=== PATIENT | female | born 1955 | race Caucasian/White ===

== ENCOUNTER 2021-07-30 11:34 | Outpatient (REF) | payer MEDICARE, SELFPAY ==
--- NOTE | ~2021-07-30 | MM_ITS ---
EXAMINATION: MM SCREENING DIGITAL BREAST TOMOSYNTHESIS, BILATERAL CLINICAL INFORMATION: Screening. Asymptomatic. The lifetime risk of breast cancer based on the Tyrer-Cuzick Model is 3%. COMPARISON: Mammography: 05/26/2020, 05/21/2019, 04/23/2018 TECHNIQUE: Digital breast tomosynthesis is performed in both the craniocaudal and mediolateral oblique views along with computer-aided detection (CAD). Synthesized 2D images are generated from the tomosynthesis. Additional bilateral CC and right MLO views are provided. FINDINGS: There are scattered areas of fibroglandular density (ACR BI-RADS breast composition Category b). There are no significant masses, abnormal calcifications, or other abnormalities. Breast tissue composition borders on predominantly fatty. Background stromal and fibroglandular densities are stable. There are no significant changes. MM/MM tomosynthesis screening BI IMPRESSION: No mammographic evidence of malignancy. ASSESSMENT: BI-RADS 1: Negative RECOMMENDATION: Routine annual mammography screening. This patient's information was entered into a reminder system with a target due date for their next mammogram.
== END 2021-07-30 11:35 | disposition home or self-care (01) ==
LOC: HO.MAMMO 11:34
PROVIDERS: Visit Provider Pediatrics
DX: Z12.31 Encounter for screening mammogram for malignant neoplasm of breast (principal)
CPT/HCPCS: 77063; 77067

== ENCOUNTER 2022-04-03 08:02 | Day surgery (SDC) | payer MEDICARE, SELFPAY ==
[2022-03-28 14:54] VITALS: BMI 43.0
--- NOTE | 2022-04-02 10:27 | HO.ANESPROP2 ---
Documented by User: Em Olsen NP 04/02/22 10:28 HPI - Anesthesia Eval Consult details Narrative: 67yo F for Colonoscopy [facility] Past Medical History Medical History Elevated cholesterol Hiatal hernia HTN (hypertension) OAB (overactive bladder) Surgical History Surgical History History of cholecystectomy History of esophagogastroduodenoscopy (EGD) Hx of section Hx of colonoscopy Hx of gastric bypass Hx of tonsillectomy S/P panniculectomy Social History Social History Patient Tobacco Use Status: Never used Tobacco Use of substances other than those prescribed or required for medical reasons: No Are you DNR?: No Advance Directives: No Advance Directives Information Provided: Yes Meds Allergies Allergy/AdvReac Type Severity Reaction Status Date / Time Penicillins Allergy Unknown Verified 03/28/22 14:53 Home Medications Medication Instructions Recorded Confirmed Last Taken Type lisinopril 10 mg tablet 1 tab PO DAILY 03/28/22 04/03/22 04/03/22 07:00 History naproxen sodium 220 mg capsule 440 mg PO BID PRN 03/28/22 03/28/22 Unknown History (Aleve) oxybutynin chloride 10 mg 1 tab PO DAILY 03/28/22 03/28/22 Unknown History tablet,extended release 24 hr pravastatin 20 mg tablet 1 tab PO DAILY 03/28/22 03/28/22 Unknown History Exam Exam Date and Time: April 02, 2022 1027 Height,Weight and Vital Signs: Height 5 ft Weight 99.79 kg Assessment and Plan Assessment Anesthesia Assessment: Chart Reviewed Documented by User: Ivan Vann MD 04/03/22 14:55 [facility] Past Medical History Medical History Elevated cholesterol Hiatal hernia HTN (hypertension) OAB (overactive bladder) Family History Family history of problems with anesthesia: No Surgical History Surgical History History of cholecystectomy History of esophagogastroduodenoscopy (EGD) Hx of section Hx of colonoscopy Hx of gastric bypass Hx of tonsillectomy S/P panniculectomy History of Problems with Anesthesia: Yes (Delayed emergence , PONV ) Social History Social History Patient Tobacco Use Status: Never used Tobacco Use of substances other than those prescribed or required for medical reasons: No Are you DNR?: No Advance Directives: No Advance Directives Information Provided: Yes Meds Allergies Allergy/AdvReac Type Severity Reaction Status Date / Time Penicillins Allergy Unknown Verified 03/28/22 14:53 Home Medications Medication Instructions Recorded Confirmed Last Taken Type lisinopril 10 mg tablet 1 tab PO DAILY 03/28/22 04/03/22 04/03/22 07:00 History naproxen sodium 220 mg capsule 440 mg PO BID PRN 03/28/22 03/28/22 Unknown History (Aleve) oxybutynin chloride 10 mg 1 tab PO DAILY 03/28/22 03/28/22 Unknown History tablet,extended release 24 hr pravastatin 20 mg tablet 1 tab PO DAILY 03/28/22 03/28/22 Unknown History Exam Airway Mallampati Class: II TM Dist: >3cm Neck ROM: Full Partial: Upper Loose/Missing/Broken Teeth: Yes (Chipped ) Heart: S1, S2 Lungs: b/l breath sounds Assessment and Plan Assessment Anesthesia Assessment: Anesthesia Plan Discussed Final Anesthetic Review Family History of Problems with Anesthesia: No History of Problems with Anesthesia: Yes (Delayed emergence , PONV ) NPO: Yes ASA Class: II Final Preanesthetic Review: Meds/Allgs Chart Reviewed, Consent Obtained/Reviewed and Anes Risks/Benef Reviewed Patient Risk: Intermediate Procedure Risk: Intermediate Anesthetic Plan Anesthetic Plan: MAC: Disposition: Standard PACU
[2022-04-03 08:41] VITALS: BP 113/54; PULSE 63; RESP 16; TEMP 36.6; O2SAT 99; BMI 43.0
[2022-04-03] MEDS: Lactated Ringers 1,000 ML 100 ML IVCONT (08:51)
--- NOTE | 2022-04-03 08:52 | PC.NURSE ---
Pt states that she may have had an allergic reaction to an unknown anesthetic in 1979. Difficulty waking up and nausea/vomiting
[2022-04-03 10:15] VITALS: BP 85/49; PULSE 76; RESP 16; TEMP 36.7; O2SAT 98
--- NOTE | 2022-04-03 10:15 | P.BOP_ITS ---
Brief Operative Note Date of Service: 04/03/22 Pre-op diagnosis: Screening Post-op diagnosis: other (Diverticulosis) Procedure: Colonoscopy to the cecum and TI Surgeon: Alexis Roy Anesthesia: MAC Was an Lamination Machine Operator used for this Procedure?: No Estimated blood loss (mL): 0 Pathology: none sent Condition: stable Disposition: PACU
[2022-04-03 10:30] VITALS: BP 110/52; PULSE 62; RESP 16; TEMP 36.7; O2SAT 99
--- NOTE | 2022-04-03 22:01 | OP_ITS ---
SURGEON: Alexis Roy MD INDICATIONS: The patient presents for evaluation of colorectal cancer screening. Full consent was obtained from her for this, including risks of bleeding and perforation. PREOPERATIVE DIAGNOSIS: Colorectal cancer screening. POSTOPERATIVE DIAGNOSIS: Colorectal cancer screening, diverticulosis, internal hemorrhoids. PROCEDURE PERFORMED: Colonoscopy to the cecum and terminal ileum. ESTIMATED BLOOD LOSS: COMPLICATIONS: ANESTHESIA: Monitored anesthesia care. ASSISTANTS: SPECIMENS: DESCRIPTION OF PROCEDURE: The patient was placed in the left lateral decubitus position. The digital rectal exam revealed some small external hemorrhoids. The Olympus video pediatric colonoscope was entered into the rectum and advanced easily to the cecum. Once in the cecum, I did identify normal-appearing cecal pouch with appendiceal orifice and a normal-appearing ileocecal valve. The terminal ileum was cannulated and appeared normal. Scope was withdrawn back in the colon. The entire cecum and ileocecal valve appeared normal. The scope was slowly withdrawn assessing all mucosal surfaces carefully. Preparation was excellent. I did not visualize any sign of polyps, colitis, nor angiodysplasia. There was a mild amount of sigmoid diverticulosis. In the rectum, scope was retroflexed visualizing small internal hemorrhoids, but no other pathology. The rectal mucosa appeared normal. The scope was straightened and withdrawn from the patient. She tolerated the procedure well and was returned to the recovery area in stable condition. IMPRESSION: 1. Diverticulosis. 2. Internal hemorrhoids. PLAN: Given her age and today's negative colonoscopy, as well as a negative family history of colon cancer, I do not think she will be needing any further screening colonoscopies. She will otherwise see me on a p.r.n. basis. Alexis Roy MD RMW/DONAVANL / [phone]
== END 2022-04-03 11:12 | disposition home or self-care (01) ==
PROVIDERS: PCP Family Medicine; Visit Provider Internal Medicine
PROC: 0DJD8ZZ Inspection of Lower Intestinal Tract, Via Natural or Artificial Opening Endoscopic (ICD-10-PCS; CPT 45378; principal; 2022-04-03 09:10)
DX: Z12.11 Encounter for screening for malignant neoplasm of colon (principal); K57.30 Diverticulosis of large intestine without perforation or abscess without bleeding; K64.8 Other hemorrhoids; I10 Essential (primary) hypertension; E78.5 Hyperlipidemia, unspecified; N32.81 Overactive bladder; Z79.899 Other long term (current) drug therapy; Z79.1 Long term (current) use of non-steroidal anti-inflammatories (NSAID); Z90.49 Acquired absence of other specified parts of digestive tract; Z98.84 Bariatric surgery status; Z88.0 Allergy status to penicillin
CPT/HCPCS: G0121

== ENCOUNTER 2022-08-14 14:39 | Outpatient (REF) | payer MEDICARE, SELFPAY ==
--- NOTE | ~2022-08-14 | MM_ITS ---
EXAMINATION: MM SCREENING DIGITAL BREAST TOMOSYNTHESIS, BILATERAL CLINICAL INFORMATION: Screening. Asymptomatic. The lifetime risk of breast cancer based on the Tyrer-Cuzick Model is 3%. COMPARISON: Mammography: 07/30/2021, 05/26/2020, 05/21/2019 TECHNIQUE: Digital breast tomosynthesis is performed in both the craniocaudal and mediolateral oblique views along with computer-aided detection (CAD). Synthesized 2D images are generated from the tomosynthesis. Additional bilateral CC views are provided. FINDINGS: The breasts are almost entirely fatty (ACR BI-RADS breast composition Category a). There are no significant masses, abnormal calcifications, or other abnormalities. Background stromal markings are stable. The axilla and skin contours are unremarkable. No significant changes. MM/MM tomosynthesis screening BI IMPRESSION: No mammographic evidence of malignancy. ASSESSMENT: BI-RADS 1: Negative RECOMMENDATION: Routine annual mammography screening. This patient's information was entered into a reminder system with a target due date for their next mammogram.
== END 2022-08-14 14:40 | disposition home or self-care (01) ==
LOC: HO.MAMMO 14:39
PROVIDERS: PCP Family Medicine; Visit Provider Pediatrics
DX: Z12.31 Encounter for screening mammogram for malignant neoplasm of breast (principal)
CPT/HCPCS: 77063; 77067

== ENCOUNTER 2023-08-19 11:23 | Outpatient (REF) | payer MEDICARE, SELFPAY | END 2023-08-19 11:24 | disposition home or self-care (01) | LOC: HO.MAMMO 11:23 | PROVIDERS: PCP Family Medicine; Visit Provider Family Medicine | DX: Z12.31 Encounter for screening mammogram for malignant neoplasm of breast (principal) | CPT/HCPCS: 77063; 77067 ==

== ENCOUNTER → 2023-08-19 11:30 | Outpatient (BNV) | payer MEDICARE, SELFPAY | PROVIDERS: PCP Family Medicine; Visit Provider Radiology Diagnostic Radiology | DX: Z12.31 Encounter for screening mammogram for malignant neoplasm of breast (principal) | CPT/HCPCS: 77063; 77067 ==

== ENCOUNTER 2023-09-11 13:09 | Outpatient (REF) | payer MEDICARE, SELFPAY ==
--- NOTE | ~2023-09-11 | MM_ITS ---
EXAMINATION: BONE DENSITOMETRY CLINICAL INDICATION: Osteopenia. COMPARISON: Baseline BD dated 05/19/2018. TECHNIQUE: Using a [employer] DXA System (software version: 13.1) manufactured by [employer], dual-energy x-ray absorptiometry was performed of the lumbar spine and left hip. The images are of good technical quality. Summary results are attached. FINDINGS: AP SPINE: L2-L3 (excluding L1 and L4): The data of L1-L4 has been changed to exclude the L1 and L4 vertebral bodies, because degenerative sclerosis at these levels may cause overestimation of lumbar spine density. Current: BMD 0.914 g/cm2, Z-score -1.9, T-score -2.4, osteopenia, 1.1% decrease from baseline (<5% change is not significant). Baseline: BMD 0.924 g/cm2. LEFT FEMUR, NECK: Current: BMD 0.641 g/cm2, Z-score -1.9, T-score -2.9, osteoporosis. Baseline: BMD 0.975 g/cm2. LEFT FEMUR, TOTAL: Current: BMD 0.813 g/cm2, Z-score -0.9, T-score -1.5, osteopenia, 26.2% decrease from baseline (<5% change is not significant). Baseline: BMD 1.101 g/cm2. IDENTIFIED RISK FACTORS: Secondary osteoporosis (part of stomach removed, early menopause). HISTORY OF FRACTURE: None listed. MEDICATIONS: Calcium supplement and/or multivitamin. MM/XR DEXA axial skeleton IMPRESSION: 1. DIAGNOSIS: Osteoporosis based on the lowest T-score value of -2.9 in the femoral neck applying World Health Organization criteria. 2. 10-YEAR FRACTURE RISK PREDICTION, FRAX: According to the guidelines, FRAX calculation should only be performed on patients in the osteopenia bone density category.?Therefore, FRAX was not performed on this patient.? 3. Treatment Recommendations: NOF guidelines recommend consideration for treatment in postmenopausal women and men age 50 and older presenting with the following: -A hip or vertebral (clinical or morphometric) fracture. -T-score less than or equal to -2.5 at the femoral neck or spine after appropriate evaluation to exclude secondary causes. -Low bone mass at the hip or spine and a 10-year fracture probability by FRAX of greater than or equal to 3% for hip fracture or greater than or equal to 20% for major osteoporotic fracture based on the [place] adapted WHO algorithm. 4. Other Recommendations: All treatment decisions require clinical judgment and consideration of individual patient factors, including patient preferences, comorbidities, previous drug use, risk factors not captured in the FRAX model (e.g. frailty, falls, vitamin D deficiency, increased bone turnover, interval significant decline in bone density) and possible under or overestimation of fracture risk by FRAX. Additional medical evaluation for secondary cause of low bone mineral density may be appropriate. FUTURE SCAN RECOMMENDATION: People with diagnosed cases of osteoporosis or at high risk for fracture should have regular bone mineral density tests. For patients eligible for Medicare, routine testing is allowed once every 2 years. The testing frequency can be increased to one year for patients who have rapidly progressing disease, those who are receiving or discontinuing medical therapy to restore bone mass, or have additional risk factors.
== END 2023-09-11 13:10 | disposition home or self-care (01) ==
LOC: HO.MAMMO 13:09
PROVIDERS: PCP Family Medicine; Visit Provider Family Medicine
DX: Z13.820 Encounter for screening for osteoporosis (principal); Z78.0 Asymptomatic menopausal state
CPT/HCPCS: 77080

== ENCOUNTER 2024-05-24 09:34 | Day surgery (SDC) | payer MEDICARE, SELFPAY ==
--- NOTE | 2024-05-20 12:22 | P.CONAN_ITS ---
Documented by User: Em Olsen NP 05/20/24 12:23 HPI - Anesthesia Eval Consult details Narrative: 69yo F for Left Cataract Extraction IOL Insertion No previous cataract on record [facility] Past Medical History Medical History (Updated 05/21/24 @ 09:13 by Jazmyne Fregoso, S[place]) Environmental allergies Seasonal allergies Cataract Hiatal hernia OAB (overactive bladder) Elevated cholesterol HTN (hypertension) Family History Family history of problems with anesthesia: No Surgical History Surgical History Hx of colonoscopy History of esophagogastroduodenoscopy (EGD) S/P panniculectomy Hx of tonsillectomy History of cholecystectomy Hx of gastric bypass Hx of section History of Problems with Anesthesia: Yes (Delayed emergence , PONV ) Social History Social History Patient Tobacco Use Status: Never used Tobacco Advance Directives: No Advance Directives Information Provided: Yes Meds Allergies Allergy/AdvReac Type Severity Reaction Status Date / Time No Known Allergies Allergy Verified 05/24/24 11:40 Home Medications ?Medication ?Instructions ?Recorded ?Confirmed ?Last Taken ?Type lisinopril 10 mg tablet 1 tab PO DAILY 03/28/22 04/03/22 04/03/22 07:00 History naproxen sodium 220 mg capsule 440 mg PO BID PRN Pain 03/28/22 03/28/22 Unknown History (Aleve) oxybutynin chloride 10 mg 1 tab PO DAILY 03/28/22 03/28/22 Unknown History tablet,extended release 24 hr pravastatin 20 mg tablet 1 tab PO DAILY 03/28/22 03/28/22 Unknown History Assessment and Plan Assessment Anesthesia Assessment: Chart Reviewed Final Anesthetic Review Family History of Problems with Anesthesia: No History of Problems with Anesthesia: Yes (Delayed emergence , PONV ) Documented by User: Yohana Hernandez MD 05/24/24 11:41 [facility] Past Medical History Medical History (Updated 05/21/24 @ 09:13 by Jazmyne Fregoso RN) Environmental allergies Seasonal allergies Cataract Hiatal hernia OAB (overactive bladder) Elevated cholesterol HTN (hypertension) Surgical History Surgical History Hx of colonoscopy History of esophagogastroduodenoscopy (EGD) S/P panniculectomy Hx of tonsillectomy History of cholecystectomy Hx of gastric bypass Hx of section Social History Social History Patient Tobacco Use Status: Never used Tobacco Advance Directives: No Advance Directives Information Provided: Yes Meds Allergies Allergy/AdvReac Type Severity Reaction Status Date / Time No Known Allergies Allergy Verified 05/24/24 11:40 Home Medications ?Medication ?Instructions ?Recorded ?Confirmed ?Last Taken ?Type lisinopril 10 mg tablet 1 tab PO DAILY 03/28/22 04/03/22 04/03/22 07:00 History naproxen sodium 220 mg capsule 440 mg PO BID PRN Pain 03/28/22 03/28/22 Unknown History (Aleve) oxybutynin chloride 10 mg 1 tab PO DAILY 03/28/22 03/28/22 Unknown History tablet,extended release 24 hr pravastatin 20 mg tablet 1 tab PO DAILY 03/28/22 03/28/22 Unknown History Exam Airway Mallampati Class: II TM Dist: >3cm Neck ROM: Full Denture: Upper Partial: Lower Assessment and Plan Assessment Anesthesia Assessment: Anesthesia Plan Discussed Final Anesthetic Review NPO: Yes ASA Class: II Final Preanesthetic Review: No Changes in Pt Med Stat, Meds/Allgs Chart Reviewed, Consent Obtained/Reviewed and Anes Risks/Benef Reviewed Patient Risk: Low Procedure Risk: Low Anesthetic Plan Anesthetic Plan: MAC: Disposition: Standard PACU
[2024-05-21 09:09] VITALS: BMI 44.0
[2024-05-24 11:52] VITALS: BP 157/71; PULSE 54; RESP 16; TEMP 36.5; O2SAT 99
[2024-05-24] MEDS: Tetracaine HCl/PF 0.5% Oph Sol 4 ML DROPS 1 DROP EYE-LEFT (11:57)
[2024-05-24] MEDS: Cyclopentolate 1 % Ophth Sol 2 ML DRPBTL 1 DROP EYE-LEFT ×3 (11:58→12:04)
[2024-05-24] MEDS: Tropicamide 1 % Ophth Sol 3 ML BTL 1 DROP EYE-LEFT ×3 (11:59→12:04)
[2024-05-24] MEDS: Ketorolac Tromethamine 0.5% Op 10 ML DROPS 1 DROP EYE-LEFT ×3 (11:59→12:05)
[2024-05-24] MEDS: Phenylephrine HCL 2.5% Oph SoL 2 ML BOTTLE 1 DROP EYE-LEFT ×3 (12:00→12:05)
[2024-05-24] MEDS: Lactated Ringers 500 ML 50 ML IV (12:10)
--- NOTE | 2024-05-24 12:33 | MHC.SHP ---
Pre-Procedural Eval Section A - 24 Hr Update-Section A only Date of Service: 05/24/24 The patient is an INPATIENT: No Changes since office visit: No Cold of Flu in the past 2 weeks, No New Medical Problems, No Changes in Medication and No Patient answered all questions The patient has been examined within 24 hours of the surgical procedure. The History & Physical has been completed within 30 days and I have reviewed it.: Yes Section B - Complete if H&P > 30 days Chief Complaint: Age-related nuclear cataract, left eye Allergies: Allergies Allergy/AdvReac Type Severity Reaction Status Date / Time No Known Allergies Allergy Verified 05/24/24 11:40 Plan Diagnosis/Plan: Unchanged I have reviewed the history and physical and performed a pertinent physical examination on my patient. No changes have occurred unless specified. Time Spent With Patient Time: Total time managing care of this patient today ____ minutes.
--- NOTE | 2024-05-24 12:34 | HO.PNOPHT ---
Ophthalmology Procedure Procedure Date of Service: 05/24/24 Ophthalmology Viscoelastic: Healon Duet Dual Pack Pro Ophthalmology Lenses: IOL Acrysof MP - MA60AC (21) Procedure Notes: PREOPERATIVE DIAGNOSIS: Decreased visual acuity left eye secondary to cataract POSTOPERATIVE DIAGNOSIS: Same PROCEDURE: Left cataract extraction with intraocular lens insertion SURGEON: Aiden Gill M.D. ANESTHESIA: Topical/MAC ESTIMATED BLOOD LOSS: None COMPLICATIONS: None After obtaining informed consent, the patient was brought to the operation room suite and placed in the supine position. After adequate sedation per anesthesia, topical drops of Tetracaine were given to the left eye. The eye was then prepped and draped in the usual sterile fashion. The operating room microscope was then positioned over the operative eye and a lid speculum placed. A paracentesis was created. Viscoelastic was then instilled into the anterior chamber. A three plane incision was then created temporally, utilizing a 2.85 mm keratome. Capsulotomy forceps were then utilized to create a circular tear capsulotomy. Hydrodissection and hydrodelineation were carried out until adequate mobilization of the nucleus occurred. Phacoemulsification was then utilized to remove the dense central nucleus followed by removal of the cortical material utilizing the automated aspiration irrigation unit. Viscoat elastic was instilled into the posterior capsular bag followed by placement of a posterior chamber intraocular lens without difficulty. The residual Viscoat elastic was then removed utilizing the automated IA machine. The wound was check and found to be watertight. The patient tolerated the procedure well and the lid speculum was removed. Intracameral injection of Vigamox 0.1 mL followed by a subtenon injection of Kenalog-40 0.2 mL were administered. The patient will be seen in the a.m.
[2024-05-24 13:01] VITALS: BP 150/65; PULSE 61; RESP 18; TEMP 36.1; O2SAT 100
== END 2024-05-24 13:10 | disposition home or self-care (01) ==
PROVIDERS: PCP Family Medicine; Visit Provider Ophthalmology
PROC: (CPT 66985; principal; 2024-05-24 11:40)
DX: H25.12 Age-related nuclear cataract, left eye (principal); H52.4 Presbyopia; Z83.511 Family history of glaucoma; H35.033 Hypertensive retinopathy, bilateral; H18.413 Arcus senilis, bilateral; H40.013 Open angle with borderline findings, low risk, bilateral; H35.3131 Nonexudative age-related macular degeneration, bilateral, early dry stage; I10 Essential (primary) hypertension; E78.00 Pure hypercholesterolemia, unspecified; Z79.899 Other long term (current) drug therapy; Z79.1 Long term (current) use of non-steroidal anti-inflammatories (NSAID); Z88.0 Allergy status to penicillin
CPT/HCPCS: 66984; J2250; J3301; V2630

== ENCOUNTER 2024-06-07 09:15 | Day surgery (SDC) | payer MEDICARE, SELFPAY ==
[2024-05-21 14:27] VITALS: BMI 42.9
[2024-05-21 14:29] VITALS: BMI 42.9
[2024-06-07] MEDS: Tetracaine HCl/PF 0.5% Oph Sol 4 ML DROPS 1 DROP EYE-RIGHT (10:11)
[2024-06-07] MEDS: Cyclopentolate 1 % Ophth Sol 2 ML DRPBTL 1 DROP EYE-RIGHT ×3 (10:12→10:28)
[2024-06-07] MEDS: Tropicamide 1 % Ophth Sol 3 ML BTL 1 DROP EYE-RIGHT ×3 (10:14→10:30)
[2024-06-07] MEDS: Ketorolac Tromethamine 0.5% Op 10 ML DROPS 1 DROP EYE-RIGHT ×3 (10:16→10:32)
[2024-06-07] MEDS: Phenylephrine HCL 2.5% Oph SoL 2 ML BOTTLE 1 DROP EYE-RIGHT ×3 (10:18→10:34)
[2024-06-07 10:25] VITALS: BP 158/56; PULSE 63; RESP 16; TEMP 36.6; O2SAT 97
--- NOTE | 2024-06-07 10:40 | HO.ANESPROP2 ---
HPI - Anesthesia Eval Consult details Narrative: 69 yo female patient for Right cataract extraction, IOL Insertion. 2mg of versed for Left cataract 05/24/24 [facility] Past Medical History Medical History Environmental allergies Seasonal allergies Cataract Hiatal hernia OAB (overactive bladder) Elevated cholesterol HTN (hypertension) Family History Family history of problems with anesthesia: No Surgical History Surgical History Hx of colonoscopy History of esophagogastroduodenoscopy (EGD) S/P panniculectomy Hx of tonsillectomy History of cholecystectomy Hx of gastric bypass Hx of section History of Problems with Anesthesia: Yes (Delayed emergence , PONV ) Social History Social History Patient Tobacco Use Status: Never used Tobacco Advance Directives: No Advance Directives Information Provided: Yes Advance Directives on File: No Meds Allergies Allergy/AdvReac Type Severity Reaction Status Date / Time No Known Allergies Allergy Verified 06/07/24 10:42 Active Medications: Current Medications Lactated Ringer's (Lr) 500 mls @ 50 mls/hr IV .Q10H MOMO Stop: 06/07/24 20:44 Povidone Iodine (Povidone Iodine 5 % Ophth Soln 30 Ml Bottle) 1 appl EYE-RIGHT PREOP PRN PRN Reason: Pre-Op Surgical Implant Prophy Home Medications ?Medication ?Instructions ?Recorded ?Confirmed ?Last Taken ?Type lisinopril 10 mg tablet 1 tab PO DAILY 03/28/22 06/07/24 06/06/24 History naproxen sodium 220 mg capsule 440 mg PO BID PRN Pain 03/28/22 03/28/22 Unknown History (Aleve) oxybutynin chloride 10 mg 1 tab PO DAILY 03/28/22 06/07/24 06/06/24 History tablet,extended release 24 hr pravastatin 20 mg tablet 1 tab PO DAILY 03/28/22 06/07/24 06/06/24 History Exam Height,Weight and Vital Signs: Height 4 ft 11.75 in Weight 98.883 kg Last Vital Signs Temp 97.8 F 06/07/24 10:25 Pulse 63 06/07/24 10:25 Resp 16 07/08/24 10:25 BP 158/56 H 06/07/24 10:25 Pulse Ox 97 06/07/24 10:25 O2 Del Method Room Air 06/07/24 10:25 Airway Mallampati Class: II TM Dist: >3cm Neck ROM: Full Partial: Upper and Lower Loose/Missing/Broken Teeth: Yes (Denies broken or loose teeth) Heart: RRR Lungs: CTAB Assessment and Plan Assessment Anesthesia Assessment: Anesthesia Plan Discussed and Chart Reviewed Final Anesthetic Review Family History of Problems with Anesthesia: No History of Problems with Anesthesia: Yes (Delayed emergence , PONV ) NPO: Yes ASA Class: II Final Preanesthetic Review: No Changes in Pt Med Stat, Meds/Allgs Chart Reviewed, Consent Obtained/Reviewed and Anes Risks/Benef Reviewed Patient Risk: Low Procedure Risk: Low Assessment/Block/Sedation in SS: Assess/Block/Sedation-SS Anesthetic Plan Anesthetic Plan: MAC: Disposition: Standard PACU
[2024-06-07] MEDS: Lactated Ringers 500 ML 50 ML IV (10:41)
--- NOTE | 2024-06-07 11:23 | P.PCNO_ITS ---
Ophthalmology Procedure Procedure Date of Service: 06/07/24 Ophthalmology Viscoelastic: Healon Duet Dual Pack Pro Ophthalmology Lenses: IOL Acrysof MP - MA60AC (21) Procedure Notes: PREOPERATIVE DIAGNOSIS: Decreased visual acuity right eye secondary to cataract POSTOPERATIVE DIAGNOSIS: Same PROCEDURE: Right cataract extraction with intraocular lens insertion SURGEON: Aiden Gill M.D. ANESTHESIA: Topical/MAC ESTIMATED BLOOD LOSS: None COMPLICATIONS: None After obtaining informed consent, the patient was brought to the operating room suite and placed in the supine position. After adequate sedation per anesthesia, topical drops of Tetracaine were given to the right eye. The eye was then prepped and draped in the usual sterile fashion. The operating room microscope was then positioned over the operative eye and a lid speculum placed. A paracentesis was created. Viscoelastic was then instilled into the anterior chamber. A three plane incision was then created temporally, utilizing a 2.85 mm keratome. Capsulotomy forceps were then utilized to create a circular tear capsulotomy. Hydrodissection and hydrodelineation were carried out until adequate mobilization of the nucleus occurred. Phacoemulsification was then utilized to remove the dense central nucl eus followed by removal of the cortical material utilizing the automated aspiration irrigation unit. Viscoelastic was instilled into the posterior capsular bag followed by placement of a posterior chamber intraocular lens without difficulty. The residual Viscoelastic was then removed utilizing the automated IA machine. The wound was checked and found to be watertight. The patient tolerated the procedure well and the lid speculum was removed. Intracameral injection of Vigamox 0.1 mL followed by a subtenon injection of Kenalog-40 0.2 mL were administered. The patient will be seen in the a.m.
--- NOTE | 2024-06-07 11:23 | MHC.SHP ---
Pre-Procedural Eval Section A - 24 Hr Update-Section A only Date of Service: 06/07/24 The patient is an INPATIENT: No Changes since office visit: No Cold of Flu in the past 2 weeks, No New Medical Problems, No Changes in Medication and No Patient answered all questions The patient has been examined within 24 hours of the surgical procedure. The History & Physical has been completed within 30 days and I have reviewed it.: Yes Section B - Complete if H&P > 30 days Chief Complaint: Age-related nuclear cataract, right eye Allergies: Allergies Allergy/AdvReac Type Severity Reaction Status Date / Time No Known Allergies Allergy Verified 06/07/24 10:42 Plan Diagnosis/Plan: Unchanged I have reviewed the history and physical and performed a pertinent physical examination on my patient. No changes have occurred unless specified. Time Spent With Patient Time: Total time managing care of this patient today ____ minutes.
[2024-06-07 11:50] VITALS: BP 140/74; PULSE 62; RESP 15; TEMP 36.1; O2SAT 98
== END 2024-06-07 12:04 | disposition home or self-care (01) ==
PROVIDERS: PCP Family Medicine; Visit Provider Ophthalmology
PROC: (CPT 66985; principal; 2024-06-07 11:20)
DX: H25.11 Age-related nuclear cataract, right eye (principal); H52.4 Presbyopia; Z83.511 Family history of glaucoma; H40.013 Open angle with borderline findings, low risk, bilateral; H35.3131 Nonexudative age-related macular degeneration, bilateral, early dry stage; H18.413 Arcus senilis, bilateral; H35.033 Hypertensive retinopathy, bilateral; Z97.3 Presence of spectacles and contact lenses; I10 Essential (primary) hypertension; E78.00 Pure hypercholesterolemia, unspecified; J30.2 Other seasonal allergic rhinitis; Z79.1 Long term (current) use of non-steroidal anti-inflammatories (NSAID); Z79.899 Other long term (current) drug therapy; Z88.0 Allergy status to penicillin
CPT/HCPCS: 66984; J2250; J3010; J3301; V2630

== ENCOUNTER 2024-08-24 11:08 | Outpatient (REF) | payer MEDICARE, SELFPAY ==
--- NOTE | ~2024-08-24 | MM_ITS ---
EXAMINATION: MM SCREENING DIGITAL BREAST TOMOSYNTHESIS, BILATERAL CLINICAL INFORMATION: Screening. Asymptomatic. COMPARISON: Mammography: Comparison is made with available priors TECHNIQUE: Digital breast mammography with tomosynthesis is performed in both the craniocaudal and mediolateral oblique views along with computer-aided detection (CAD). FINDINGS: There are scattered areas of fibroglandular density (ACR BI-RADS breast composition Category b). There are no significant masses, abnormal calcifications, or other abnormalities. MM/MM tomosynthesis screening BI IMPRESSION: No mammographic evidence of malignancy. ASSESSMENT: BI-RADS BI-RADS 1 - Negative RECOMMENDATION: Routine annual mammography screening. 1 year F/U This examination should not preclude the clinical evaluation of a suspicious palpable abnormality. This patient's information was entered into a reminder system with a target due date for their next mammogram. Electronically signed by: Radha Forde DO 09/03/2024 12:35 PM EDT
== END 2024-08-24 11:09 | disposition home or self-care (01) ==
LOC: HO.MAMMO 11:08
PROVIDERS: PCP Family Medicine; Visit Provider Family Medicine
DX: Z12.31 Encounter for screening mammogram for malignant neoplasm of breast (principal)
CPT/HCPCS: 77063; 77067

== ENCOUNTER → 2024-08-24 11:30 | Outpatient (BNV) | payer MEDICARE, SELFPAY | PROVIDERS: PCP Family Medicine; Visit Provider Internal Medicine | DX: Z12.31 Encounter for screening mammogram for malignant neoplasm of breast (principal) | CPT/HCPCS: 77063; 77067 ==

== ENCOUNTER 2025-08-26 11:25 | Outpatient (REF) | payer MEDICARE, SELFPAY ==
--- NOTE | ~2025-08-26 | MM_ITS ---
EXAMINATION: MM SCREENING DIGITAL BREAST TOMOSYNTHESIS, BILATERAL CLINICAL INFORMATION: Screening. Asymptomatic. COMPARISON: Mammography: Comparison is made with available priors TECHNIQUE: Digital breast mammography with tomosynthesis is performed in both the craniocaudal and mediolateral oblique views along with computer-aided detection (CAD). FINDINGS: There are scattered areas of fibroglandular density. There are no significant masses, abnormal calcifications, or other abnormalities. MM/MM tomosynthesis screening BI IMPRESSION: No mammographic evidence of malignancy. ASSESSMENT: BI-RADS Category 1: Negative RECOMMENDATION: Routine annual mammography screening. 1 year F/U This examination should not preclude the clinical evaluation of a suspicious palpable abnormality. This patient's information was entered into a reminder system with a target due date for their next mammogram. Electronically signed by: Radha Forde DO 08/29/2025 05:40 PM EDT
--- OUTSIDE RECORDS SUMMARY | 2025-08-26 13:17 | XMS_ITS | Patient Health Record ---
Author Organization [facility] Address [address] [place] [id number] Care Team Providers Care Pai Gow Dealer Name Role Phone Michelle Arguelles Primary Care Provider Unavailable Alexis Roy Unavailable [phone] Allergies Allergen (clinical drug ingredient) Drug/Non Drug Allergy documented on EMR Reaction Allergy Type Onset Date Status Penicillin Unknown Drug Allergy Active Reason For Referral No Information Medications Medication SIG (Take, Route, Frequency, Duration) Notes Start Date End Date Status Pravastatin Sodium 20 MG Oral for 90 Active Lisinopril 10 MG Oral for 90 A ctive oxyBUTYnin Chloride ER 10 MG Oral for 90 Active Immunizations Vaccine Route Administration Date Status Comme nts Influenza Unknown 08/01/2021 Administered Social History Tobacco Use: Social History Observation Description Date Details (start date - stop date) Never Smoker NA - NA Tobacco Use/Smoking Question Answer Notes Patient is a nonsmoker Alcohol Screen Question Answer Notes Did you have a drink contain ing alcohol in the past year? Yes How often did you have a dri nk containing alcohol in the past year? 2 to 3 times a week (3 points) How many drinks did you have on a typical day when you were drinking in the past year? 1 or 2 drinks (0 point) Points 3 Interpretation Positive Section Notes: Nonsmoker; no sig alcohol Problems Problem Type SNOMED Code ICD Code Onset Dates Problem Status W/U Status Risk Notes Problem 381964691 Encounter for screening for malignant neoplasm of colon (Z12.11) Active confirmed Problem 404840216894567 Preprocedural examination (Z01.818) Active confirmed Problem 656781311 NSAID long-term use (Z79.1) Active confirmed Problem Diverticulosis of colon (627970075) Diverticulosis of colon (K57.30) Active confirmed Plan Of Treatment Future Test Test Name Order Date COLONOSCOPY 03/01/2022 Insurance Providers Payer Name Payer Address Payer Phone Subscriber Number Group Number Insured Name Patient Relationship to Insured Coverage Start Date Coverage End Date MEDICARE OF [place] [address] JANNETH ROBERSON [id number] LAURI HYMAN Self - patient is the insured MED[employer] ATT[employer] CLAIMS [address] [place] [address] [phone] [id number] LAURI HYMAN Self - patient is the insured Medical (General) History Medical History History ICD Code Hypertension Denies ID,DM,CVA,Lung disease,renal dise ase EGD 08/2011--small hiatal he rnia, status-post gastric bypass anatomy, no esophagitis or Holm's esophagus Colonoscopy 08/2011-negative except for a hyperplastic polyp Overactive bladder Hyperlipidemia Surgical History Surgery Date(Month/Year) section x3 gastric bypass--2003--lost 80# altogethe r cholecystectomy panniculectomy tonsillectomy
--- OUTSIDE RECORDS SUMMARY | 2025-08-26 13:17 | XMS_ITS ---
Author Name [facility] Organization Unknown Care Team Organization Name Specialty Phone Email Start Date End Da te [facility] Termed, PROVIDER Primary Care 10/08/202207/01
--- OUTSIDE RECORDS SUMMARY | 2025-08-26 13:17 | XMS_ITS | Clinical Summary ---
Author Organization [facility] Address [address] [place] [id number] Phone Care Team Providers Care Auth Specialist Name Role Phone Rylie Kumar MD Primary Care Provid er Medications lisinopril (PRINIVIL,ZESTRI L) 10 MG tablet 08/09/2019 Act tala pravastatin (PRAVACHOL) 20 MG tablet 08/09/2019 Active tolterodine (DETROL) 2 MG tablet Take 2 mg by mouth 2 (two) times a day. Active Active Problems No known active problems Immunizations Immunization Administration Dates Next Due COVID-19 (Pre-09/22) Moderna Vaccine, Bivalent 6 mo+ 03/31/2022,09/21/2021 COVID-19 (Pre-09/22) Moderna Vaccine, mRNA, PF 0 12/27/2020 INFLUENZA, SPLIT VIRUS, TRIVALENT PF 11/06/2017 INFLUENZA, SPLIT VIRUS, TRIVALENT W/ PRESERVATIV E IM 09/11/2016 Influenza High-Dose Quadrivalent Preservative Fr ee IM 09/21/2021 Influenza High-Dose Trivalent Preservative Free IM 08/17/2018 Influenza Quadrivalent Adjuvanted Preservative F ree IM 12/26/2022,09/07/2020 Influenza Quadrivalent MDCK Preservative Free IM 09/16/2019 Pneumococcal conjugate PCV13 05/12/2015 Pneumococcal polysaccharide PPSV23 11/06/2017 Tdap 05/12/2015 Zoster recombinant 12/13/2019,09/16/2019 Social History Tobacco Use Types Packs/Day Years Used Date Smoking Tobacco: Never Smokeless Tobacco: Never Education Answer Date Recorded Are you interested in more education? Not on mariam e 03/28/2023 Are you concerned about learning? Not on file 03/28/2023 No 03/28/2023 No 03/28/2023 Digital Access Answer Date Recorded No 04/26/2023 No 04/26/2023 Reliable internet access at home? Not on file 04/26/2023 Device with a working camera? Not on file Comments Unknown Sex and Gender Information Value Date Recorded Sex Assigned at Not on file Legal Sex Female 10:36 PM EDT Gender Identity Not on file Sexual Orientation Not on file Last Filed Vital Signs Vital Sign Reading Time Taken Comments Blood Pressure 121/67 09/01/2023 10:20 AM EDT Pulse 47 09/01/2023 10:20 AM EDT Temperature 35.6 C (96.1 F) 09/01/2023 10:20 AM EDT Respiratory Rate 18 09/01/2023 10:20 AM EDT Oxygen Saturation 99% 09/01/2023 10:20 AM EDT Inhaled Oxygen Concentration - - Weight 99.3 kg (219 lb) 08/06/2023 2:25 PM EDT Height 152.4 cm (5') 12/14/2019 9:33 AM EST Body Mass Index 42.77 12/14/2019 9:33 AM EST Plan of Treatment Health Maintenance Due Date Last Done Comments CREATININE LEVEL 1953 LIPID PANEL 1953 POTASSIUM LEVEL 1953 DEPRESSION SCREENING 1965 HEPATITIS C SCREENING 1971 MAMMOGRAM 1993 COLOGUARD 1998 COLONOSCOPY 1998 COLORECTAL CANCER SCREENING 1998 FIT TEST 1998 FOBT 1998 SIGMOIDOSCOPY 1998 VIRTUAL COLONOSCOPY 1998 RSV VACCINE (1 - Risk 60-74 years 1-dose series) 2013 OSTEOPOROSIS SCREENING INITIAL (ONE-TIME) 2018 PNEUMOCOCCAL VACCINES (50+ years) (3 of 3 - PCV20 or PCV21) 11/06/2022 11/06/2017, 05/12/2015 Adult Td,Tdap Booster 05/12/2025 05/12/2015 INFLUENZA VACCINE (#1) 2025 3, 09/21/2021, 09/07/2020, Additional history exists COVID-19 VACCINE ( season) 2025 12/26/2022, 03/31/2022, 03/31/2022, Additional history exists ZOSTER VACCINES Completed 12/13/2019, 09/16/2019 SMOKING STATUS SCREENING (Once After 26 Yrs) Completed 12/14/2019 HEPATITIS A VACCINES Aged Out No long er eligible based on patient's age to complete this topic HIB VACCINES Aged Out No longer eligi ble based on patient's age to complete this topic MENINGOCOCCAL VACCINES (ACWY) Aged Out No longer eligible based on patient's age to complete this topic MENINGOCOCCAL VACCINES (B) Aged Out N o longer eligible based on patient's age to complete this topic Medical Devices Not on file Insurance [employer] MEDEX SUPPLEMENT MEDICARE PART A & B BLUE CROSS MEDEX SUPPLEMENT MEDICARE PART A & B Member Subscriber Plan / Payer (Ef fective 2018-Present) Name:Daniela Ivana Member ID:[id number] Relation to Subscriber:Self Name:Rosa Elena Ivan Subscriber ID:[id number] Payer ID:[id number] Group ID:Not on file Type:Medicare Address: [employer] [address] [place], [place] [id number] [place] CROSS MEDEX SUPPLEMENT MEDICARE PART A & B Member Subscriber Plan / Payer (Ef fective 2018-Present) Name:Rosa Elena Ivan Member ID:[id number] Relation to Subscriber:Self Name:Rosa Elena Ivan Subscriber ID:[id number] Payer ID:[id number] Group ID:Not on file Type:Medicare Address: [employer] [address] [place] [phone] [employer] MEDEX SUPPLEMENT MEDICARE PART A & B [employer] MEDEX SUPPLEMENT MEDICARE PART A & B [employer] MEDEX SUPPLEMENT MEDICARE PART A & B [employer] MEDEX SUPPLEMENT MEDICARE PART A & B [employer] MEDEX SUPPLEMENT MEDICARE PART A & B [employer] MEDEX SUPPLEMENT MEDICARE PART A & B Care Teams Auth Specialist Relationship Specialty Start Date End Date Rylie Kumar MD [facility] [address] [address] PCP - General Internal Medicine 11/01/19 Additional Source Comments The information contained in this document represents components of the legal health record. It is not the complete legal health record.[facility]
== END 2025-08-26 11:26 | disposition home or self-care (01) ==
LOC: HO.MAMMO 11:25
PROVIDERS: PCP Family Medicine; Visit Provider Family Medicine
DX: Z12.31 Encounter for screening mammogram for malignant neoplasm of breast (principal)
CPT/HCPCS: 77063; 77067

== ENCOUNTER → 2025-08-26 11:30 | Outpatient (BNV) | payer MEDICARE, SELFPAY | PROVIDERS: PCP Family Medicine; Visit Provider Internal Medicine | DX: Z12.31 Encounter for screening mammogram for malignant neoplasm of breast (principal) | CPT/HCPCS: 77063; 77067 ==